=== PATIENT | female | born 1995 | race Caucasian/White ===

== ENCOUNTER 2017-02-26 11:03 | Emergency (ER) | payer OTHER ==
[~2017-02-26] VITALS: Ht 167.6 cm; Wt 57.0 kg
[2017-02-26] MEDS ORDERED: IOHEXOL 350 MG/ML 10 ML VIAL (for RAD DIAG) IVCONTRAST ONE (11:04)
[2017-02-26 11:40] VITALS: BP 118/74; PULSE 75; RESP 18; TEMP 97.9; O2SAT 100
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
[2017-02-26 14:41] LABS: BACTERIA, URINE RARE /hpf; BLOOD, URINE MOD (NEG); COMMENT (UR) CULTURE INDICATED; CULTURE IF INDICATED CULTURE INDICATED; GLUCOSE,URINE NEG (NEG); KETONE, URINE 10 mg/dL (NEG); MUCUS URINE FEW /lpf (OCC); NITRITE,URINE NEG (NEG); PH, URINE 5.5 (5.0-8.5); URINE COLOR LIGHT-YELLOW (YELLW/STRAW)
[2017-02-26] MEDS ORDERED: cefTRIAXone INJ 1,000 MG in SODIUM CHLORIDE 0.9% INJ 100 ML IV ONE (14:45)
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
[2017-02-26] MEDS ORDERED: CEPH-460 PO (15:56)
[2017-02-26] MEDS ORDERED: MAPA500T13 PO (15:56)
[2017-02-26] MEDS ORDERED: IBUP-232 PO (15:56)
[2017-02-26] MEDS ORDERED: CYCL5TAB PO (15:56)
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
[2017-02-26 16:37] VITALS: BP 111/68
== END 2017-02-26 16:45 | disposition home or self-care (01) ==
LOC: NEDAMB 11:03
DX: S16.1XXA Strain of muscle, fascia and tendon at neck level, initial encounter (principal); N30.00 Acute cystitis without hematuria; M25.512 Pain in left shoulder; B95.1 Streptococcus, group B, as the cause of diseases classified elsewhere; V43.92XA Unspecified car occupant injured in collision with other type car in traffic accident, initial encounter
CPT/HCPCS: 70450; 72125; 73000; 73030; 74177; 81001; 84703; 86403; 87086; 96365; 99285; J0696; Q9967